=== PATIENT | female | born 1980 | race Caucasian/White ===

== ENCOUNTER 2016-05-06 16:05 | Emergency (ER) | payer OTHER ==
--- NOTE | ~2016-05-06 | CR17 ---
[facility]. [facility] A Service of [facility] & [facility] RADIOLOGY TEXT RESULTS PATIENT: ERICKA CASTANO LOCATION: SED : 78 UNIT #: [id number] AGE: [address]: MARGARET COYLE SEX: F ORDER DR: [id number] [place] [id number] E MR#: [id number] Acc #: [id number] NAME: ERICKA CASTANO : 1980 SEX: F STUDY DATE/TIME: 05/06/2016 16:31 UNIT: SED ROOM: STUDY DESCRIPTION: CR Ankle 2 Views Lt Attending Physician: Margaret Coyle Aprn Referring Physician: Margaret Coyle Aprn Ordering Physician: Physician Non-Staff Primary Care Physician: Felecia Tyson A.P.R.N. MEDICAL IMAGING REPORT This report is preliminary unless electronic signature is present. EXAM Left ankle series 05/06/2016 HISTORY Trauma. Pain top of foot lateral ankle began today. Fall down steps. History of fracture 3 years ago. AP and lateral radiographs of the left ankle are presented. FINDINGS Suboptimal examination in the absence of oblique view of the left ankle. The visualized portions of ankle show normal alignment. No fracture. Ankle mortise joint appears intact. Plantar calcaneal spur. No soft tissue defect, subcutaneous air or radiodense foreign body. Dictated by... Morgan Castle M.D. THIS IS AN ELECTRONICALLY VERIFIED REPORT Morgan Castle M.D. at 05/07/2016 8:05 PM Deyvi TD: 05/06/2016 18:53 JOB #: [id number] MEDICAL IMAGING REPORT Page 1 of 1
--- NOTE | ~2016-05-06 | CR123 ---
[facility]. [facility] A Service of [facility] & [facility] RADIOLOGY TEXT RESULTS PATIENT: ERICKA CASTANO LOCATION: SED : 78 UNIT #: [id number] AGE: [address]: MARGARET COYLE SEX: F ORDER DR: [id number] [place] [id number] E MR#: [id number] Acc #: [id number] NAME: ERICKA CASTANO : 1980 SEX: F STUDY DATE/TIME: 05/06/2016 16:31 UNIT: SED ROOM: STUDY DESCRIPTION: CR Foot 2 Views Lt Attending Physician: Margaret Coyle Aprn Referring Physician: Margaret Coyle Aprn Ordering Physician: Alexia Pruett Primary Care Physician: Felecia Tyson A.P.R.N. MEDICAL IMAGING REPORT This report is preliminary unless electronic signature is present. EXAM Left foot series 05/06/2016 HISTORY Trauma. Fell down steps today. Pain top of foot, lateral ankle HISTORY Fracture 3 years ago. FINDINGS AP and lateral radiographs of the left foot are presented. Study is limited in absence of oblique view. No acute traumatic fracture or malalignment. 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 This is a normal variant. No traumatic malalignment. Plantar calcaneal spur. No soft tissue defect, subcutaneous air or radiodense foreign body. Dictated by... Morgan Castle M.D. THIS IS AN ELECTRONICALLY VERIFIED REPORT Morgan Castle M.D. at 05/07/2016 8:05 PM TIM/crow TD: 05/06/2016 18:59 JOB #: [id number] MEDICAL IMAGING REPORT Page 1 of 1
--- NOTE | ~2016-05-06 | CR14 ---
[facility] A Service of [facility] & [facility] RADIOLOGY TEXT RESULTS PATIENT: ERICKA CASTANO LOCATION: SED : 79 UNIT #: [id number] AGE: [address]: MARGARET COYLE SEX: F ORDER DR: [id number] [place] [id number] E MR#: [id number] Acc #: [id number] NAME: ERICKA CASTANO : 1980 SEX: F STUDY DATE/TIME: 05/06/2016 17:25 UNIT: SED ROOM: STUDY DESCRIPTION: CR Ankle 1 View Lt Attending Physician: Margaret Coyle Aprn Referring Physician: Margaret Coyle Aprn Ordering Physician: Physician Non-Staff Primary Care Physician: Felecia Tyson A.P.R.N. MEDICAL IMAGING REPORT This report is preliminary unless electronic signature is present. EXAM Left ankle single view HISTORY Follow up from earlier radiographs. FINDINGS A single mortise view of the left ankle demonstrates no obvious fracture dislocation. Soft tissues appear normal. The ankle mortise appears intact. Dictated by... June Grayson M.D. THIS IS AN ELECTRONICALLY VERIFIED REPORT June Grayson M.D. at 05/06/2016 10:39 PM Frandy TD: 05/06/2016 21:04 JOB #: [id number] MEDICAL IMAGING REPORT Page 1 of 1
[~2016-05-06 16:05] MED LIST: AMOXICILLIN500 M1 PO; BACTRIM DS TABL1 TA1 PO; BENZONATATE PO; CETIRIZINE HCL5 MG PO; FLAGYL PO; IBUPROFEN600 MG PO; IBUPROFEN800 MG PO; LORTAB 10-5001 EACH; MEDROL PO; MEDROL4 MG/DOSE- PO; MOTRIN600 M1 PO; NO MEDICATIONS; PAXIL10 MG PO; PEN-VEE K PO; PHENERGAN W/CO120 ML PO; ZITHROMAX PO; [UNRECOGNIZED DRUG - OTHER] PO
== END 2016-05-06 18:20 | disposition home or self-care (01) ==
LOC: SED 16:05
DX: S93.402A Sprain of unspecified ligament of left ankle, initial encounter (principal); F17.210 Nicotine dependence, cigarettes, uncomplicated; W19.XXXA Unspecified fall, initial encounter
CPT/HCPCS: 29540; 73600; 73620; 99283

== ENCOUNTER 2016-08-04 09:33 | Emergency (ER) | payer OTHER ==
--- NOTE | ~2016-08-04 | CT2 ---
[facility] A Service of [facility] RADIOLOGY TEXT RESULTS PATIENT: ERICKA CASTANO LOCATION: SED : 78 UNIT #: [id number] AGE: [address]: Chacho Frias MD SEX: F ORDER DR: [id number] [place] [id number] E MR#: [id number] Acc #: [id number] NAME: ERICKA CASTANO : 1980 SEX: F STUDY DATE/TIME: 08/04/2016 10:53 UNIT: SED ROOM: STUDY DESCRIPTION: CT Abd and Pelv W Cont Attending Physician: Chacho Frias M.D. Ordering Physician: Chacho Frias M.D. Primary Care Physician: Felecia Tyson A.P.R.N. MEDICAL IMAGING REPORT This report is preliminary unless electronic signature is present. EXAM CT abdomen and pelvis with contrast. DATE 08/04/2016 HISTORY 35-year-old female with complaints of left lower back and abdominal pain with vomiting since 7:30 today. Current smoker. History of congenital heart disease. Cholecystectomy. Tubal ligation. COMPARISON Right upper quadrant abdominal ultrasound 12/04/2013. No prior CT abdomen and pelvis at this institution for comparison. PROCEDURE 5 mm axial images from the lung bases through the lesser trochanters after intravenous contrast administration. Enteric contrast was not administered. Sagittal and coronal reformatted images were obtained. This CT exam was performed with one or more of the following radiation dose reduction techniques: automatic exposure control, adjustment of mA and/or kV according to patient size, and iterative reconstruction. FINDINGS ABDOMEN FINDINGS: A 4 mm stone is lodged within the right ureteropelvic junction resulting in mild right hydronephrosis and hydroureter. Gallbladder is surgically absent. Liver, spleen, pancreas, adrenals, and left kidney are normal. The unopacified bowel appears grossly nonthickened and noninflamed. The appendix appears normal. PELVIS FINDINGS: Urinary bladder, uterus, and rectum appear [facility] of [facility] RADIOLOGY TEXT RESULTS PATIENT: ERICKA CASTANO LOCATION: [facility] : [birth year] UNIT #: [id number] AGE: [address]: Chacho Frias MD SEX: F ORDER DR: martha. No acute osseous abnormalities are identified. There is minimal atelectasis in the left lower lobe without basilar consolidation. IMPRESSION 1. 4 mm stone is lodged within the right ureteropelvic junction with mild right hydronephrosis and hydroureter. The provided history states the patient has left abdominal and back pain. There are no acute findings in the abdomen or pelvis to correspond to the left side. 2. The appendix is normal. 3. Cholecystectomy. 4. Minimal left basilar atelectasis. Dictated by... Rayna Orozco M.D. THIS IS AN ELECTRONICALLY VERIFIED REPORT Rayna Orozco M.D. at 08/05/2016 8:35 AM HOWIE/deborah TD: 08/04/2016 13:34 JOB #: [id number] MEDICAL IMAGING REPORT Page 1 of 1
[2016-08-04 10:12] LABS: URINE SOURCE CLEAN CATCH
[2016-08-04 10:13] LABS: BASOPHIL# 0.1 X10e3 (0-0.3); EOSINOPHIL# 0.1 X10e3 (0-0.7); HEMATOCRIT 41.7 % (35.0-45.0); HEMOGLOBIN 14.1 gm/dL (12.0-16.0); LYMPHOCYTE# 1.6 X10e3 (1.0-3.5); MEAN CELL VOLUME 88.7 FL (83-96); MEAN CORPUSCULAR HEMOGLOBIN 30.1 PG (28-34); MEAN CORPUSCULAR HGB CONC 33.9 g/dL (30-36); MEAN PLATELET VOLUME 7.3 FL (6.5-11.5); MONOCYTE# 0.7 X10e3 (0-1.0); NEUTROPHIL# 6.1 X10e3 (1.5-7.1); PLATELET COUNT 343 X10e3 (140-420); RED CELL DISTRIBUTION WIDTH 13.5 % (11.0-15.5); WHITE BLOOD COUNT 8.6 X10e3 (4.0-10.5)
[2016-08-04 10:15] LABS: URINE APPEARANCE CLOUDY; URINE BLOOD 3+ (NEG); URINE COLOR YELLOW; URINE GLUCOSE NEG (NORM); URINE KETONE NEG (NEG); URINE LEUKOCYTE ESTERASE TRACE (NEG); URINE NITRATE NEG (NEG); URINE PH 5.5 (5-8); URINE PROTEIN 1+ (NEG); URINE SPECIFIC GRAVITY >=1.030 (1.003-1.035)
[2016-08-04 10:18] LABS: MICRO INDICATED? YES; URINE BILIRUBIN NEG (NEG)
[2016-08-04 10:22] LABS: DIFF IND NO
[2016-08-04 10:34] LABS: ALBUMIN SERUM 4.3 g/dL (3.5-5.0); BILIRUBIN, DIRECT 0.1 mg/dL (0.0-0.2); BILIRUBIN,INDIRECT 0.4 mg/dL (0.0-0.9); BILIRUBIN,TOTAL 0.5 mg/dL (0.2-2.0); CALCIUM SERUM 8.9 mg/dL (8.4-10.2); CREATININE SERUM 0.8 mg/dL (0.6-1.4); GLOM FILT RATE Estimated 94.9 mL/min (>60); POTASSIUM 3.5 mmol/L (3.5-5.1); PROTEIN TOTAL SERUM 7.4 g/dL (6.0-8.3)
[2016-08-04 10:41] LABS: CULTURE INDICATED? NO; URINE BACTERIA NEG (NEG); URINE RBC 200-300 /[HPF] (0-2); URINE SQUAMOUS EPITHELIAL CELL OCCAS /[HPF]; URINE WBC 0-2 /[HPF] (0-5); URINE YEAST PRESENT
[2016-08-06 10:30] LABS: CHLAMYDIA TRACH Not Detected (Not Detected); N GONOR Not Detected (Not Detected)
== END 2016-08-04 12:06 | disposition home or self-care (01) ==
LOC: SED 09:33
PROVIDERS: Emergency Medicine
DX: N13.2 Hydronephrosis with renal and ureteral calculous obstruction (principal); F17.200 Nicotine dependence, unspecified, uncomplicated; Z90.49 Acquired absence of other specified parts of digestive tract; Z88.2 Allergy status to sulfonamides
CPT/HCPCS: 36415; 74177; 80048; 80076; 81003; 82150; 83690; 84703; 85025; 87491; 87591; 87808; 87905; 96361; 96374; 96375; 99284; J1885; J2405; Q9967